=== PATIENT | male | born 1990 | race Two or more races ===

== ENCOUNTER 2017-06-18 06:00 | Emergency (ER) | payer MEDICAID ==
[~2017-06-18] VITALS: Ht 154.9 cm; Wt 80.7 kg
--- NOTE | 2017-06-18 06:07 | NUR ---
PRESENTS SELF TO ED FOR LOWER BACK PAIN, 04/10, SHARP, NON RADIATING,. PATIENT IS AAO4. APPEARS IN NO APPARENT DISTRESS,. AMBULATORY. VSS
--- NOTE | 2017-06-18 06:19 | NUR ---
DR. GIBSON AT BEDSIDE
[2017-06-18 06:22] VITALS: BP 127/78
--- NOTE | 2017-06-18 06:22 | NUR ---
Patient discharged to home in stable condition. Written and verbal after care instructions given. Patient verbalizes understanding of instruction.
== END 2017-06-18 06:28 | disposition home or self-care (01) ==
LOC: ER 06:01
DX: M54.5 Low back pain (principal); M79.604 Pain in right leg; F17.200 Nicotine dependence, unspecified, uncomplicated
CPT/HCPCS: A4606; Z7610